=== PATIENT | male | born 1970 | race Caucasian/White ===

== ENCOUNTER 2016-11-03 20:15 | Emergency (ER) | payer BC | END 2016-11-03 21:08 | disposition left against medical advice (07) | LOC: ER 20:15 | DX: E16.2 Hypoglycemia, unspecified (principal) | CPT/HCPCS: 99282 ==

== ENCOUNTER 2018-03-16 19:42 | Observation (INO) ==
[2018-03-16] MEDS ORDERED: ONDANSETRON 4 MG/2 ML VIAL IVP ONE ×3 (19:50→23:57)
[2018-03-16] MEDS ORDERED: Sodium Chloride 0.9% 1,000 ML PRIMARY IV ONE ×3 (19:50→20:09)
[2018-03-16] MEDS ORDERED: ONDANSETRON 4 MG/2 ML VIAL ONE (20:05)
[2018-03-16 20:20] LABS: BASOPHILS # (AUTO) 0.07 10*3/UL; EOSINOPHILS # (AUTO) 0.08 10*3/UL; EOSINOPHILS % (AUTO) 1.2 % (0-8); Hematocrit [HCT] 40.6 % (42.0-52.0); Hemoglobin [HGB] 14.3 g/dL (14.0-18.0); LYMPHOCYTES # (AUTO) 1.12 10*3/uL; MEAN CORPUSCULAR HEMOGLOBIN 30.4 PG (27-31); MEAN CORPUSCULAR HGB CONC 35.2 g/dL (33-37); MEAN CORPUSCULAR VOLUME 86.2 FL (80-90); MEAN PLATELET VOLUME 11.7 FL (7.4-12.2); MONOCYTES # (AUTO) 0.25 10*3/UL (0.3-0.8); MONOCYTES % (AUTO) 3.6 % (5-15); NEUTROPHILS # (AUTO) 5.41 10*3/UL; NEUTROPHILS % (AUTO) 77.8 % (50-80); RED BLOOD COUNT 4.71 10^6/uL (4.70-6.10)
[2018-03-16 20:22] LABS: PLATELET MORPHOLOGY COMMENT NORMAL MORPHOLOGY (NORM); RBC MORPHOLOGY COMMENT NORMAL MORPHOLOGY (NORM); WBC MORPHOLOGY COMMENT NORMAL MORPHOLOGY (NORM)
[2018-03-16 20:25] LABS: BLOOD UREA NITROGEN 39 mg/dL (7-22); BUN/CREATININE RATIO 16.25 (6-20); SERUM ALBUMIN 4.3 g/dL (3.5-4.8)
[2018-03-16 20:33] LABS: SALICYLATE < 1.0 mg/dl (0-20)
[2018-03-16 20:37] LABS: VENOUS PCO2 37.2 mmHg (45-55); VENOUS PH 7.289 (7.32-7.42)
--- NOTE | 2018-03-16 21:10 | DI ---
EXAM: CT Head Without Intravenous Contrast CLINICAL HISTORY: ITS.REASON HEAD INJURY Physician Notes: Tech Comments: TECHNIQUE: Axial computed tomography images of the head/brain without intravenous contrast. COMPARISON: CT head dated 09/01/2017. FINDINGS: Brain: Unremarkable. No acute intracranial hemorrhage. No midline shift or herniation. Ventricles: Unremarkable. No ventriculomegaly. Bones/joints: No acute fracture. Soft tissues: Unremarkable. Vasculature: There is calcification of the distal internal carotid arteries and vertebrobasilar system. Sinuses: Unremarkable as visualized. Mastoid air cells: Unremarkable as visualized. IMPRESSION: No evidence of acute intracranial hemorrhage or skull fracture.
[2018-03-16 21:36] LABS: BILIRUBIN,URINE NEGATIVE (NEG); CLARITY,URINE CLEAR (CLEAR); COLOR,URINE YELLOW (Y); GLUCOSE, URINE (UA) 500 mg/dL (NEG); OCCULT BLOOD,URINE SMALL (NEG); PH,URINE 5.5 (5.0-8.5); PROTEIN,URINE >300 mg/dl (NEG); UROBILINOGEN,URINE 0.2 EU/dL (0.2)
[2018-03-16 21:38] LABS: URINE SAMPLE TYPE CLEAN CATCH URINE; URINE SPECIFIC GRAVITY - MAN 1.012
[2018-03-16 21:49] LABS: AMPHETAMINE SCREEN NEGATIVE (NEG); OPIATE SCREEN,URINE NEGATIVE (NEG)
[2018-03-16 21:50] LABS: CANNABINOID SCREEN,URINE NEGATIVE (NEG); COCAINE SCREEN NEGATIVE (NEG); METHADONE URINE SCREEN NEGATIVE (NEG); METHAMPHETAMINES SCREEN,URINE NEGATIVE (NEG)
[2018-03-16] MEDS ORDERED: INSULIN REGULAR, HUMAN 100 UNIT/1 ML - 3 ML SUBCUT ONE (22:00)
[2018-03-16] MEDS ORDERED: Insulin Regular Inj 100 UNIT in Sodium Chloride 0.9% 99 ML IV SCH (22:00)
--- NOTE | 2018-03-16 22:51 | CONSULT ---
Consult Note - Consult Consult Date: 03/16/18 Reason for Consult: Other Requesting Physician: Dr. Pradhan Primary Care Provider: Vianca Ribeiro MD - History of Present Illness History of Present Illness: This is a 48 years old male with medical history significant for history of type I diabetes, hypertension and was brought to the hospital by the receiving coordinator because of suicidal ideation, he did vomit at least twice in the ER. He was thinking of blowing his head off according to him. In the ER he was found to have hyperglycemia, hyponatremia in addition to chronic renal failure. There is also metabolic acidosis, he was given Zofran. In addition he was given IV fluid. He was assessed by [facility] and he was put on hold. He needed medical clearance before he would go to [facility]. Although [facility] puts in the notes that he was homicidal and mentioned to them that he would shoot his dad if he came close to him, when I talked to him about this he denied that. He said he was thinking of only harming himself only and he denied that he was thinking of harming anybody else. He was angry throughout the interview.He wanted to sleep. He said he is wearing his insulin pump but he supposed to change his site every 3 days and he didn't. He said he drinks when he is on his days off. He didn't want to talk about why he is suicidal. He said he is been suicidal for a long time but he didn't go into details. During the interview there was lots of profanity in his speech while talking to me. Past Medical History Medical History: 1. Diabetes mellitus type I. 2. Hypercholesterolemia. 3. Vitamin D deficiency. 4. Diabetic retinopathy, proliferative. 5. Diabetic nephropathy. 6. Chronic kidney disease, stage III. 7. Laceration of liver 1992. 8. Hypertension. 9. Tobacco abuse, uses smokeless tobacco. 10. [place] Surgical History: 1. Right shoulder surgery. Pertinent Family History: Significant for cancer in his father who had melanoma, and his grandfather who had prostate cancer. Tobacco Use: Current Every Day Smoker Do you dip or chew tobacco: Yes (CAN EVERY 3 DAYS) In the Past 12 Months, Have Used or Abuse Any of the Following Substance: None Review of Systems - Review of Systems All Systems: Reviewed & No Additional Complaints Except as Stated Medication / Allergies Home Medications: Home Medications Medication Instructions Recorded Confirmed Type blood glucose control, normal 1 ml MISCELLANEOUS 6XD #200 ea 02/13/17 03/16/18 History solution blood sugar diagnostic strips 1 strip MISCELLANEOUS 6XD #300 02/13/17 03/16/18 History strip cholecalciferol (vitamin D3) 2,000 1,000 unit PO DAILY #30 cap 02/13/17 03/16/18 History unit capsule insulin aspart U- 100 100 unit/mL 100 unit SUBCUT via pump #3 vial 02/13/17 03/16/18 Rx subcutaneous solution insulin syringe-needle U-100 1 mL 1 ml MISCELLANEOUS TID PRN #100 ea 02/13/17 03/16/18 History 30 gauge x 1/2" subcutaneous insulin pump 1 ea MISCELLANEOUS DAILY 02/13/17 03/16/18 History blood sugar diagnostic strips 1 strip MISCELLANEOUS 6-8X QD #600 02/16/17 03/16/18 Rx strip insulin glargine (U-100) 100 19 unit SUBCUT QHS PRN #1 unit 02/16/17 03/16/18 Rx unit/mL (3 mL) subcutaneous pen glucagon (human recombinant) 1 mg 1 mg SUBCUT ONCE #2 ea 02/21/17 03/16/18 Rx injection kit Urine Acetone Test,Strips [Ketone 0 spr .ROUTE .MEDSUPPLY 09/01/17 03/16/18 History Test Strip] atorvastatin 40 mg tablet 40 mg PO QHS #90 tab 09/27/17 03/16/18 Rx lisinopril 40 mg tablet 40 mg PO BID #180 tab 09/27/17 03/16/18 Rx Allergies/Adverse Reactions: Allergies Allergy/AdvReac Type Severity Reaction Status Date / Time No Known Allergies Allergy Verified 03/16/18 19:51 Exam - Vitals Vital Signs: Vital Signs Temperature 96.6 F Pulse Rate [Pulse Oximeter] 86 Pulse Rate 80 Respiratory Rate 16 Blood Pressure [Left Arm] 174/109 Pulse Ox 96 Oxygen Delivery Method Room Air Height 5 ft 5 in Weight 135 lb - General Additional General Exam Details: Angry. Somewhat cooperative though. - Head Head Exam: Normal Inspection - Eye Eye Exam: POSITIVE: Normal Appearance - ENT ENT Exam: POSITIVE: Normal Exam - Neck Neck Exam: Normal Inspection - Respiratory Respiratory Exam: POSITIVE: Clear to Auscultation - Bilaterally - Cardiovascular Cardiovascular Exam: POSITIVE: RRR - GI/Abdominal GI/Abdominal Exam: POSITIVE: Normal Bowel Sounds, Non Tender, Non Distended, Soft, No Organomegaly - Rectal Rectal Exam: POSITIVE: Deferred - External Exam: POSITIVE: Deferred - Extremities Extremities Exam: POSITIVE: Normal Inspection - Back Back Exam: POSITIVE: Normal Inspection - Neurological Neurological Exam: POSITIVE: Alert, Oriented x 3, CN II-XII Intact, No Facial Droop, Moves All Extremities Equally - Psychiatric Additional Psychiatric Exam Details: Angry. Results - Labs CBC and BMP: 03/16/18 20:00 03/16/18 20:00 Assessment and Plan - Patient Problems (1) Suicidal ideation Current Visit: Yes Status: Acute Comment: He needs medical clearance before he goes to [facility]. Did talk both the ER staff and our staff on the medical floor. The nursing staff on the medical floor don't feel safe if he is admitted here especially when we don't have security personnel. I think the decision was to keep him down in the ER rather than admitting him here. In terms of medical treatment the he is on IV fluids and antiemetics and insulin. Suggest to continue the same and continue watching his blood sugar. He need repeat labs in 6 hours. Code(s): R45.851 - Suicidal ideations
[2018-03-16] MEDS ORDERED: Sodium Chloride 0.9% 1,000 ML, Magnesium Sulfate 2gm (Premix) 50 ML with Multivitamin I... IV ONE ×5 (23:01)
[2018-03-16] MEDS ORDERED: PROMETHAZINE 25 MG/1 ML VIAL IM ONE (23:57)
[2018-03-17] MEDS ORDERED: Acetaminophen 1000mg Inj 1,000 MG/100 ML VIAL IV PRN (00:05)
[2018-03-17] MEDS ORDERED: LORazepam 2 MG/1 ML VIAL IVP ONE (00:05)
[2018-03-17] MEDS ORDERED: D5-NS 1,000 ML PRIMARY IV ONE (03:34)
[2018-03-17 04:53] LABS: BUN/CREATININE RATIO 14.09 (6-20)
[2018-03-17] MEDS ORDERED: ONDANSETRON 4 MG/2 ML VIAL ONE (06:20)
[2018-03-17] MEDS ORDERED: Metoclopramide Inj 10 MG/2 ML VIAL IVP ONE (06:31)
[2018-03-17] MEDS ORDERED: diphenhydrAMINE 50 MG/1 ML VIAL IVP ONE (06:33)
[2018-03-17] MEDS ORDERED: KETOROLAC 30 MG/1 ML VIAL IVP ONE (06:33)
[2018-03-17] MEDS ORDERED: Sodium Chloride 0.9% 1,000 ML PRIMARY IV ONE (06:35)
--- NOTE | 2018-03-17 07:39 | PDOC ---
General Adult HPI - General Chief Complaint: Suicidal Ideation / Attempt Stated Complaint: SUICIDAL IDEATION Date Seen by Provider: 03/16/18 Time Seen by Provider: 20:05 Source: POSITIVE: Patient, Police Exam Limitations: POSITIVE: No limitations Nurse's Notes Reviewed & Considered: Yes - History of Present Illness Initial Comment: The patient is a 48-year-old male who is brought to the emergency room by law enforcement officers. Some of the patient's family members called the police because the patient was threatening to shoot himself. On the arrival of law enforcement officers the patient reportedly had access to a firearm and was threatening to kill himself. He is also making homicidal threats against another family member. Patient has a history of diabetes mellitus and has an insulin pump. As the patient was being escorted by police for transport the patient slipped on the ice and struck his right forehead. He sustained an abrasion and hematoma to the right forehead. Patient states that he questions whether or not his insulin pump has been working normally lately. He's been drinking heavily last night. Patient states he has a history of migraine headaches and states that he feels like he has a migraine headache presently. Review of old records shows that the patient has a history of chronic renal failure; on 08/29/2017 BUN was 33 and creatinine 2.1 Have you received a tetanus shot in the past 10 years?: Unknown Body Location Affected: REPORTS: Head, Other (Suicidal and homicidal ideation; diabetes mellitus) Timing: REPORTS: Gradual Duration: <24 hours (Patient states he's had suicidal and homicidal ideations for over a day) Severity: Moderate Quality: REPORTS: "Pain" (Patient complains of some headache area of his recent right frontal head trauma) Context: REPORTS: Recent Trauma (As above) Modifying Factors: improves with: Nothing Similar Symptoms Previously: Yes (patient has a history of depression with some previous suicidal ideation) Recent Care Received: REPORTS: Denies Any Prior Injuries Related to Current Complaint?: No - Patient Home Medications Home Medications: Home Medications blood glucose control, normal solution 1 ml MISCELLANEOUS 6XD #200 ea 02/13/17 blood sugar diagnostic strips 1 strip MISCELLANEOUS 6XD #300 strip 02/13/17 cholecalciferol (vitamin D3) 2,000 unit capsule 1,000 unit PO DAILY #30 cap 02/13/17 insulin aspart U- 100 100 unit/mL subcutaneous solution 100 unit SUBCUT via pump #3 vial 02/13/17 insulin syringe-needle U-100 1 mL 30 gauge x 1/2" 1 ml MISCELLANEOUS TID PRN #100 ea 02/13/17 subcutaneous insulin pump 1 ea MISCELLANEOUS DAILY 02/13/17 blood sugar diagnostic strips 1 strip MISCELLANEOUS 6-8X QD #600 strip 02/16/17 insulin glargine (U-100) 100 unit/mL (3 mL) subcutaneous pen 19 unit SUBCUT QHS PRN #1 unit 02/16/17 glucagon (human recombinant) 1 mg injection kit 1 mg SUBCUT ONCE #2 ea 02/21/17 Urine Acetone Test,Strips [Ketone Test Strip] 0 spr .ROUTE .MEDSUPPLY 09/01/17 atorvastatin 40 mg tablet 40 mg PO QHS #90 tab 09/27/17 lisinopril 40 mg tablet 40 mg PO BID #180 tab 09/27/17 - Patient Allergies Allergies/Adverse Reactions: Allergies Allergy/AdvReac Type Severity Reaction Status Date / Time No Known Allergies Allergy Verified 03/16/18 19:51 Past Medical History - heen HEENT History: Denies History Additional HEENT History: Patient states he has five or six missing teeth. Cardiovascular History: Denies History Respiratory History: Denies History Gastrointestinal History: Denies History Genitourinary History: Denies History Endocrine History: Type 1 Diabetes Additional Endocrine History: INSULIN PUMP LEFT ABDOMEN, SENSOR ON RIGHT UPPER ARM Musculoskeletal History: Denies History Prosthesis or Implant: No Additional Musculoskeletal History: knee joint pain Neurological History: Denies History Blood Disorders: Denies History Psychiatric History: Denies History History of Sexually Transmitted Diseases: No Male Reproductive History: Denies History Cancer History: Denies History In Past Year Been Physically Harmed or Verbally Threatened: (PT WILL NOT ANSWER QUESTION) History of MDRO: No History of Other Communicable Diseases: No Tobacco Use: Current Every Day Smoker Alcohol Use: Occasionally Type of alcohol normally used: Beer In the Past 12 Months, Have Used or Abuse Any Substance: None Previous Surgical History: Yes Type / Date of Surgery: SHOULDER, HAND, BIOPSY FROM CHEST Anesthesia Reactions: No Malignant Hyperthermia: No Significant Family History: Cancer Additional Family History: Mother- breast/lung cancer Past Medical History Reviewed: Reviewed - No Changes ROS - Limitations ROS Limitations: Intoxication Constitution: REPORTS: Denies Symptoms Cardiovascular: REPORTS: Denies Cardiac Symptoms Respiratory: REPORTS: Denies Resp Symptoms Neurological: REPORTS: Headache Gastrointestinal: REPORTS: Nausea Endocrine: REPORTS: Denies Symptoms Musculoskeletal: REPORTS: Denies MS Symptoms Genitourinary: REPORTS: Denies Symptoms Eyes: REPORTS: Denies Symptoms ENT: REPORTS: Denies Symptoms Skin: REPORTS: Other (Contusion and abrasion right frontal area of the scalp) Lympathic: REPORTS: Denies Lympathic Symptoms Immunologic: POSITIVE: Denies Symptoms Psychiatric: POSITIVE: Suicidal Thoughts, Homicidal Thoughts General Adult Exam - General Appearance General Appearance: POSITIVE: Alert, Cooperative, No Acute Distress. NEGATIVE: No Evidence of Trauma (Right scalp hematoma) - HEENT HEENT: POSITIVE: Head Inspection Nml, Eyes Inspection Nml, Ears Inspection Nml, Nose Inspection Nml, Oral/Dental Inspect. Nml, Pharynx Inspect. Nml, PERRL, EOMI - Pupils Pupil Size: 3 mm: Bilateral (PERRLA) - Neck Neck: POSITIVE: Normal Inspection, Thyroid Normal - Respiratory Respiratory: POSITIVE: No Respiratory Distress, Breath Sounds Normal, Chest Non- Tender - Cardiovascular Cardiovascular: POSITIVE: Regular Rate & Rhythm, No Murmur, No Gallop, PMI Normal Peripheral Pulses: Radial (R): 2+, Radial (L): 2+ - Abdomen Abdomen: Soft: (All Quadrants), Normal Bowel Sounds: (All Quadrants), Denies Tenderness: (All Quadrants), No Splenomegaly: (All Quadrants), No Hepatomegaly: (All Quadrants), No Guarding: (All Quadrants), No Rebound: (All Quadrants), No Palpable Pulse: (All Quadrants), No Palpabale Mass: (All Quadrants), No Distenti on: (All Quadrants), No Rigidity: (All Quadrants) - Back Back: POSITIVE: Normal Inspection - Skin Skin: POSITIVE: Normal Color, Warm, Dry, No Rash - Extremities Extremity: Non-Tender: (All Extremities), Normal ROM: (All Extremities), Normal Inspection: (All Extremities) - Neurological / Psychological Neurological: POSITIVE: Affect Apporpriate, Oriented X3, motor electrician Normal As Tested, Motor Normal, Sensation Normal Images - Head Head: 1 - Scalp abrasion and hematoma General Adult Progress - Results Reviewed by me Xrays/CTs/US Reviewed by me: Yes Discussed with Radiologist: Yes Radiology Findings: CT scan of head without contrast read by radiologist as normal Lab Results Reviewed by Me: Yes Lab Results:: Laboratory Results 03/16/18 03/16/18 03/16/18 20:00 20:00 20:00 WBC 6.95 RBC 4.71 Hgb 14.3 Hct 40.6 L MCV 86.2 MCH 30.4 MCHC 35.2 RDW Std Deviation 36.4 L RDW Coeff of Chasity 11.7 Plt Count 219 MPV 11.7 Immature Gran % (Auto) 0.3 Neut % (Auto) 77.8 Lymph % (Auto) 16.1 [place] % (Auto) 3.6 L Eos % (Auto) 1.2 Baso % (Auto) 1.0 Immature Gran # (Auto) 0.02 Neut # (Auto) 5.41 Lymph # (Auto) 1.12 [place] # (Auto) 0.25 L Eos # (Auto) 0.08 Baso # (Auto) 0.07 WBC Morphology Comment Normal morphology Plt Morphology Comment Normal morphology RBC Morph Comment Normal morphology VBG pH VBG pCO2 VBG HCO3 VBG Base Excess Sodium 129 L Potassium 4.8 Chloride 91 L Carbon Dioxide 21 L Anion Gap 17 BUN 39 H Creatinine 2.4 H Estimated GFR 29 BUN/Creatinine Ratio 16.25 Glucose 609 H* Calculated Osmolality 304.0 H Calcium 8.7 Total Bilirubin 0.6 AST 39 ALT 36 Alkaline Phosphatase 126 Total Protein 6.8 Albumin 4.3 Globulin 2.4 L Albumin/Globulin Ratio 1.70 TSH 1.40 Ur Collection Type Urine Color Urine Clarity Urine pH Ur Specific [place] U Specif Grav (Refrac) Urine Protein Urine Glucose (UA) Urine Ketones Urine Occult Blood Urine Nitrate Urine Bilirubin Urine Urobilinogen Ur Leukocyte Esterase Urine RBC Urine WBC Ur Squamous Epith Cells Ur Renal Epithelial Cell Urine Crystals Urine Bacteria Urine Casts Urine Mucus Urine Trichomonas Urine Yeast Ur Culture Indicated? Salicylates < 1.0 Urine Opiates Screen Ur Buprenorphine Ur Oxycodone Screen Urine Methadone Screen Ur Propoxyphene Screen Acetaminophen < 10.0 Barbiturate Screen U Tricyclic Antidepress Phencyclidine Screen Amphetamines Screen U Methamphetamines Scrn Benzodiazepines Screen Cocaine Screen U Marijuana (THC) Screen Serum Alcohol 221 H Acetone Level 03/16/18 03/16/18 03/16/18 20:26 20:33 21:35 WBC RBC Hgb Hct MCV MCH MCHC RDW Std Deviation RDW Coeff of Chasity Plt Count MPV Immature Gran % (Auto) Neut % (Auto) Lymph % (Auto) [place] % (Auto) Eos % (Auto) Baso % (Auto) Immature Gran # (Auto) Neut # (Auto) Lymph # (Auto) [place] # (Auto) Eos # (Auto) Baso # (Auto) WBC Morphology Comment Plt Morphology Comment RBC Morph Comment VBG pH 7.289 L VBG pCO2 37.2 L VBG HCO3 17.9 L VBG Base Excess -9 L Sodium Potassium Chloride Carbon Dioxide Anion Gap BUN Creatinine Estimated GFR BUN/Creatinine Ratio Glucose Calculated Osmolality Calcium Total Bilirubin AST ALT Alkaline Phosphatase Total Protein Albumin Globulin Albumin/Globulin Ratio TSH Ur Collection Type Clean catch urine Urine Color Yellow Urine Clarity Clear Urine pH 5.5 Ur Specific [place] <=1.005 U Specif Grav (Refrac) 1.012 Urine Protein >300 A Urine Glucose (UA) 500 Urine Ketones Negative Urine Occult Blood Small H Urine Nitrate Negative Urine Bilirubin Negative Urine Urobilinogen 0.2 Ur Leukocyte Esterase Negative Urine RBC 1-3 Urine WBC None Ur Squamous Epith Cells None Ur Renal Epithelial Cell None Urine Crystals None Urine Bacteria None Urine Casts None Urine Mucus None Urine Trichomonas None Urine Yeast None Ur Culture Indicated? Culture not set Salicylates Urine Opiates Screen Negative Ur Buprenorphine Negative Ur Oxycodone Screen Negative Urine Methadone Screen Negative Ur Propoxyphene Screen Negative Acetaminophen Barbiturate Screen Negative U Tricyclic Antidepress Negative Phencyclidine Screen Negative Amphetamines Screen Negative U Methamphetamines Scrn Negative Benzodiazepines Screen Negative Cocaine Screen Negative U Marijuana (THC) Screen Negative Serum Alcohol Acetone Level Negative 03/17/18 03/17/18 04:38 04:38 WBC RBC Hgb Hct MCV MCH MCHC RDW Std Deviation RDW Coeff of Chasity Plt Count MPV Immature Gran % (Auto) Neut % (Auto) Lymph % (Auto) [place] % (Auto) Eos % (Auto) Baso % (Auto) Immature Gran # (Auto) Neut # (Auto) Lymph # (Auto) [place] # (Auto) Eos # (Auto) Baso # (Auto) WBC Morphology Comment Plt Morphology Comment RBC Morph Comment VBG pH VBG pCO2 VBG HCO3 VBG Base Excess Sodium 138 Potassium 4.8 Chloride 105 Carbon Dioxide 25 Anion Gap 8 BUN 31 H Creatinine 2.2 H Estimated GFR 32 BUN/Creatinine Ratio 14.09 Glucose 76 L Calculated Osmolality 291.0 Calcium 8.2 L Total Bilirubin AST ALT Alkaline Phosphatase Total Protein Albumin Globulin Albumin/Globulin Ratio TSH Ur Collection Type Urine Color Urine Clarity Urine pH Ur Specific [place] U Specif Grav (Refrac) Urine Protein Urine Glucose (UA) Urine Ketones Urine Occult Blood Urine Nitrate Urine Bilirubin Urine Urobilinogen Ur Leukocyte Esterase Urine RBC Urine WBC Ur Squamous Epith Cells Ur Renal Epithelial Cell Urine Crystals Urine Bacteria Urine Casts Urine Mucus Urine Trichomonas Urine Yeast Ur Culture Indicated? Salicylates Urine Opiates Screen Ur Buprenorphine Ur Oxycodone Screen Urine Methadone Screen Ur Propoxyphene Screen Acetaminophen Barbiturate Screen U Tricyclic Antidepress Phencyclidine Screen Amphetamines Screen U Methamphetamines Scrn Benzodiazepines Screen Cocaine Screen U Marijuana (THC) Screen Serum Alcohol 16 H Acetone Level CBC and BMP: 03/16/18 20:00 03/17/18 04:38 - Patient's Progress Pain Medication Addressed: POSITIVE: Yes (Patient given Toradol 30 mg IV, Reglan 10 mg IV and Benadryl 50 mg IV for migraine headache, with good effect. He adache essentially resolved on discharge) School/Work Release Addressed: POSITIVE: Yes (Patient medically cleared for mental health evaluation at the time of discharge) Re-Examine Time: 20:15 Re-Examine Comment: Blood glucose 609. Negative ketones. PH. Patient begun with hydration with normal saline, 1 L bolus. Patient was also given 10 units of regular insulin IV. Blood glucoses were monitored throughout his stay in the emergency room. Patient received a total of approximately 2.5 L of normal saline. At 0438 blood glucose was 76 and creatinine 2.2. At this point the patient was hydrated with D5W normal saline and the patient was fed a sandwich potato chips and peanut butter with crackers. At the time of discharge his blood glucose is around 150. Re-Examine Time:: 22:00 Re-Examine Comment: Attempted to admit patient to hospitalist. Hospitalist and nursing staff on [facility] refused to admit patient on the basis that "we have no security on the [place]". Therefore the patient was managed in the emergency room with IV hydration and insulin therapy as above. Patient also was treated for migraine headache. Counselor for [employer] evaluated patient in the emergency room and will return to make final psychiatric disposition when patient is medically stable. Re-examine Time: 07:30 Re-Examine Comment: Patient medically stable. Blood glucose 150. Patient alert and eating. He's avoided. Headache resolved. Blood alcohol now less than 100. Patient considered medically stable for reevaluation by mental health counselor from [facility]. Status: POSITIVE: Improved, Re-Examined Antibiotics Given: No - Consult Consult (If Yes, Name of Consulting MD & Time Called): Yes (Dr. Pradhan, hospit alist, ; [facility] counselor, ) Consulting MD will see pt:: POSITIVE: Other (Further disposition by mental health counselor) Counseled: POSITIVE: Patient, RE: Lab Results, RE: Radiology Results, RE: DX, RE: Need for F/U Patient Care Time - Estimated PCT Patient Care Time (In Minutes): 75 Vital Signs - Recent Vital Signs Vital Signs: Vital Signs (Last 8 hours) Temp Pulse Resp BP Pulse Ox 03/17/18 06:23 97.7 F 80 12 166/77 79 03/17/18 03:15 98.2 F 85 16 158/82 92 - VS Reviewed Vital Signs Reviewed: Yes Discharge Clinical Impression: Alcohol abuse, Feeling suicidal, Type 1 diabetes mellitus with multiple complications, Hyperglycemia, Suicidal ideation, Migraine headache, Scalp contusion, Homicidal ideation Discharge Disposition: Other (Further disposition per mental health counselor from [facility]) Condition: Good Follow Up With: DIANE VILLA [Primary Care Provider] - Care Transferred To: mental health counselor, [facility]
--- NOTE | 2018-03-17 11:15 | EKG ---
[address] [address] Measurements Intervals [place] Rate: 76 P: SD: 0 QRS: 31 QRSD: 85 T: 62 QT: 397 QTc: 427 Interpretive Statements SINUS RHYTHM Compared to ECG 05/14/2015 13:13:12 No significant changes Electronically Signed On 03-17-18 16:43:39 MST by Claudio Oakes [email or web address]
[2018-03-17 11:31] LABS: HEMOGLOBIN A1C 11.16 % (4.2-6.0)
[2018-03-17] MEDS ORDERED: Insulin Glargine SoloStar Inj 100 UNIT/ML INSULN.PEN SUBCUT ONE ×2 (13:51→16:11)
--- NOTE | 2018-03-17 13:52 | PDOC ---
HPI - History of Present Illness Date of Service: 03/17/18 Time of Service: 14:00 Chief Complaint: Suicidal ideation History of Present Illness: Please see my consult note from yesterday. This is a 48 years old male with medical history significant for history of type I diabetes, hypertension and was brought to the hospital by the frame nailer because of suicidal ideation, he did vomit at least twice in the ER. He was thinking of blowing his head off according to him. In the ER he was found to have hyperglycemia, hyponatremia in addition to chronic renal failure. There is also metabolic acidosis, he was given Zofran. In addition he was given IV fluid. He was assessed by [facility] and he was put on hold. He needed medical clearance before he would go to [facility]. Although [facility] puts in the notes that he was homicidal and mentioned to them that he would shoot his dad if he came close to him, when I talked to him about this he denied that. He said he was thinking of only harming himself only and he denied that he was thinking of harming anybody else. He was angry throughout the interview. He wanted to sleep. He said he is wearing his insulin pump but he supposed to change his site every 3 days and he didn't. He said he drinks when he is on his days off. He didn't want to talk about why he is suicidal. He said he is been suicidal for a long time but he didn't go into details. During the interview there was lots of profanity in his speech while talking to me. I talked to the nursing staff about admitting him here last night however they did not feel safe because of the note of the [email or web address] mentioning him being homicidal although he denied being homicidal to me. They spoke with their supervisor broadloom who agreed with their decision and patient was kept in the ER overnight. His labs improved this morning. Vomiting seems to be stopped. There is still some headache but it's not as bad he said its like 2 out of 10. [facility] did assess the patient again and based on the psychiatrist's recommendation they want him to be off his insulin pump before [facility] would accept him. I did speak with psychiatrist's in [facility] and he wants him to be off the insulin because of his suicidal ideation so that he does not administer a high dosage himself. I did inform the POWER DIGGER OPERATOR Dev Camacho about the nurses concern. Apparently after discussion between him and the nursing supervisor broadloom the decision that its okay to admit him here first and try to switch his insulin pump to subcutaneous insulin before he goes to [facility]. Past Medical History Medical History: 1. Diabetes mellitus type I. 2. Hypercholesterolemia. 3. Vitamin D deficiency. 4. Diabetic retinopathy, proliferative. 5. Diabetic nephropathy. 6. Chronic kidney disease, stage III. 7. Laceration of liver 1992. 8. Hypertension. 9. Tobacco abuse, uses smokeless tobacco. 10. [place] Surgical History: 1. Right shoulder surgery. Pertinent Family History: Significant for cancer in his father who had melanoma, and his grandfather who had prostate cancer. Tobacco Use: Current Every Day Smoker Do you dip or chew tobacco: Yes (CAN EVERY 3 DAYS) In the Past 12 Months, Have Used or Abuse Any of the Following Substance: None Alcohol Use: Other (He said he drinks on his days off. Convinced this 50 how much.) Medication / Allergies Home Medications: Home Medications Medication Instructions Recorded Confirmed Type blood glucose control, normal 1 ml MISCELLANEOUS 6XD #200 ea 02/13/17 03/16/18 History solution blood sugar diagnostic strips 1 strip MISCELLANEOUS 6XD #300 02/13/17 03/16/18 History strip cholecalciferol (vitamin D3) 2,000 1,000 unit PO DAILY #30 cap 02/13/17 03/16/18 History unit capsule insulin aspart U- 100 100 unit/mL 100 unit SUBCUT via pump #3 vial 02/13/17 03/16/18 Rx subcutaneous solution insulin syringe-needle U-100 1 mL 1 ml MISCELLANEOUS TID PRN #100 ea 02/13/17 03/16/18 History 30 gauge x 1/2" subcutaneous insulin pump 1 ea MISCELLANEOUS DAILY 02/13/17 03/16/18 History blood sugar diagnostic strips 1 strip MISCELLANEOUS 6-8X QD #600 02/16/17 03/16/18 Rx strip insulin glargine (U-100) 100 19 unit SUBCUT QHS PRN #1 unit 02/16/17 03/16/18 Rx unit/mL (3 mL) subcutaneous pen glucagon (human recombinant) 1 mg 1 mg SUBCUT ONCE #2 ea 02/21/17 03/16/18 Rx injection kit Urine Acetone Test,Strips [Ketone 0 spr .ROUTE .MEDSUPPLY 09/01/17 03/16/18 History Test Strip] atorvastatin 40 mg tablet 40 mg PO QHS #90 tab 09/27/17 03/16/18 Rx lisinopril 40 mg tablet 40 mg PO BID #180 tab 09/27/17 03/16/18 Rx Allergies/Adverse Reactions: Allergies Allergy/AdvReac Type Severity Reaction Status Date / Time No Known Allergies Allergy Verified 03/16/18 19:51 Review of Systems - Review of Systems All Systems: Reviewed & No Additional Complaints Except as Stated Exam - Vitals Vital Signs: Vital Signs Temperature 98.8 F Temperature Source Temporal Artery Scan Pulse Rate [Pulse Oximeter] 81 Pulse Rate 80 Respiratory Rate 16 Blood Pressure [Left Arm] 148/76 Pulse Ox 95 Oxygen Delivery Method Room Air Height 5 ft 5 in Weight 135 lb - General Additional General Exam Details: Was laying in bed doesn't appear in distress. - Head Head Exam: Normal Inspection - Eye Eye Exam: POSITIVE: Normal Appearance - ENT ENT Exam: POSITIVE: Normal Exam - Neck Neck Exam: Normal Inspection - Respiratory Respiratory Exam: POSITIVE: Clear to Auscultation - Bilaterally - Cardiovascular Cardiovascular Exam: POSITIVE: RRR - GI/Abdominal GI/Abdominal Exam: POSITIVE: Normal Bowel Sounds, Non Tender, Non Distended, Soft, No Organomegaly - Rectal Rectal Exam: POSITIVE: Deferred - External Exam: POSITIVE: Deferred - Extremities Extremities Exam: POSITIVE: No Edema Present - Back Back Exam: POSITIVE: Normal Inspection - Neurological Neurological Exam: POSITIVE: Alert, Oriented x 3, CN II-XII Intact, Speech Intact / Clear - Psychiatric Psychiatric Exam: POSITIVE: Flat Affect Results - Labs CBC and BMP: 03/16/18 20:00 03/17/18 04:38 Assessment and Plan - Patient Problems (1) Suicidal ideation Current Visit: Yes Status: Acute Comment: I think will put him one-to-one nursing. He'll be transferred to [facility] once his blood sugars are controlled on a subcutaneous regimen different from his previous insulin pump regimen. Code(s): R45.851 - Suicidal ideations (2) Diabetes Current Visit: Yes Status: Acute Comment: His basal level is a 21.5 so will switch that to 21 of Lantus. Will put him on sliding scale. We'll continue with the fluids for now. Code(s): E11.9 - Type 2 diabetes mellitus without complications (3) Hypertension Current Visit: Yes Status: Acute Comment: Resume his previous medications Code(s): I10 - Essential (primary) hypertension (4) Hypercholesterolemia Current Visit: Yes Status: Acute Comment: Continue Lipitor Code(s): E78.00 - Pure hypercholesterolemia, unspecified (5) Alcohol abuse Current Visit: Yes Status: Acute Comment: We will put him on the CIWA protocol in case he develop any withdrawal. Code(s): F10.10 - Alcohol abuse, uncomplicated
[2018-03-17] MEDS ORDERED: LIDOCAINE W/ SODIUM BICARB 0.5 ML SYR SUBD PRN (14:00)
[2018-03-17] MEDS ORDERED: ACETAMINOPHEN 325 MG TABLET PO PRN (14:00)
[2018-03-17] MEDS ORDERED: ONDANSETRON 4 MG/2 ML VIAL IVP PRN (14:00)
[2018-03-17] MEDS ORDERED: CALCIUM CARBONATE 500 MG (TUMS) CHEWABLE TABLET PO PRN (14:00)
[2018-03-17] MEDS ORDERED: DOCUSATE 100 MG CAPSULE PO PRN (14:00)
[2018-03-17] MEDS ORDERED: LORazepam 1 mg tab (ETOH withdrawal) PO PRN (14:12)
[2018-03-17] MEDS ORDERED: LORazepam Inj(ETOH withdrawal) 2 MG/ML VIAL IVP PRN (14:12)
[2018-03-17] MEDS: Sodium Chloride 0.9% 1,000 ML PRIMARY IV SCH (14:21)
[2018-03-17] MEDS: Insulin Lispro Flexpen 300 UNIT/3 ML INSULN.PEN SUBCUT SCH ×3 (14:27→20:02)
[2018-03-17] MEDS: LISINOPRIL 20 MG TABLET PO SCH (20:02)
[2018-03-17] MEDS ORDERED: ATORVASTATIN 40 MG TABLET PO SCH (21:00)
[2018-03-17] MEDS ORDERED: Insulin Lispro Flexpen 300 UNIT/3 ML INSULN.PEN SUBCUT ONE (22:03)
[2018-03-18] MEDS: Sodium Chloride 0.9% 1,000 ML PRIMARY IV SCH (00:44)
[2018-03-18 05:29] LABS: BUN/CREATININE RATIO 17.27 (6-20)
[2018-03-18] MEDS: Insulin Lispro Flexpen 300 UNIT/3 ML INSULN.PEN SUBCUT SCH ×2 (06:39→11:07)
[2018-03-18] MEDS ORDERED: Insulin Glargine SoloStar Inj 100 UNIT/ML INSULN.PEN SUBCUT SCH ×2 (09:00→13:00)
[2018-03-18] MEDS: LISINOPRIL 20 MG TABLET PO SCH (11:00)
[2018-03-18] MEDS ORDERED: Insulin Lispro Flexpen 300 UNIT/3 ML INSULN.PEN SUBCUT ONE (12:08)
[2018-03-18] MEDS ORDERED: AmLODIPine Tab 5 MG TABLET PO ONE (12:09)
--- NOTE | 2018-03-18 13:39 | DCSUMMARY ---
Hospitalization Summary Admit Date: 03/17/2018 Discharge Date: 03/18/18 Hospital Course: Transfer diagnoses 1. Suicidal ideation 2. History of diabetes type I 3. History of hypertension 4. History of hypercholesterolemia 5. History of chronic renal failure stage III 6. History of diabetic nephropathy and retinopathy 7. Alcohol intoxication resolved Hospital course This is a 48 years old male with medical history significant for history of type I diabetes, hypertension and hypercholesterolemia who was brought to the hospital by the teacher selection specialist because of suicidal ideation, he did vomit at least twice in the ER. He was thinking of blowing his head off according to him. In the ER he was found to have hyperglycemia, hyponatremia in addition to chronic renal failure. There was also metabolic acidosis he was giving Zofran and insulin. In addition he was givin IV fluid. He was assessed by [facility] and he was put on hold. He needed medical clearance before he would go to [facility]. After getting IV fluid and insulin in the ER his sodium and glucose improved. However he is on insulin pump and per the discussion that I had with the psychiatrist their policy that the patient need to be switched to subcutaneous insulin injections from the pump because of his suicidal ideation. So the patient was admitted to the hospital we switched him from the pump to the subcutaneous injection. His blood sugar numbers were acceptable there was a low blood sugar that needed some oral carbohydrate. He is on 21 units of Lantus a day. And he was put on a sliding scale insulin. Blood pressure was elevated today we gave Norvasc in addition to his lisinopril. Patient was assessed by [facility] and he was accepted by [facility] today and he'll be transferred to their care today. When I talked to him today he denied suicidal ideation. He denied homicidal ideation also. He denied homicidal ideation to me when he came in also to the ER. Laboratory Results 03/18/18 05:05 Sodium 141 Potassium 4.4 Chloride 109 Carbon Dioxide 28 Anion Gap 4 L BUN 38 H Creatinine 2.2 H Estimated GFR 32 BUN/Creatinine Ratio 17.27 Glucose 58 L Calculated Osmolality 298.0 H Calcium 8.4 L Discharge instruction Diet regular Activity as started Medications Active Medications Acetaminophen (Tylenol) 650 mg PO Q6H PRN PRN Reason: Pain or Fever Last Admin: 03/18/18 08:38 Dose: 650 mg Documented by: Atorvastatin Calcium (Lipitor) 40 mg PO BEDTIME JUNE Last Admin: 03/17/18 20:03 Dose: 40 mg Documented by: Calcium Carbonate (Tums) 1 - 2 tab PO Q6H PRN PRN Reason: Heartburn Docusate Sodium (Colace) 100 mg PO BID PRN PRN Reason: Constipation Sodium Chloride (Normal Saline 0.9%) 25 mls @ 200 mls/hr IV .Post Infusion PRN PRN Reason: No Primary IV for Flush ONLY Insulin Glargine (Lantus Solostar Inj) 21 unit SUBCUT DAILY@1300 [facility] Last Admin: 03/18/18 13:23 Dose: 21 unit Documented by: Insulin Human Lispro (Humalog Flexpen Inj) 0 - 14 unit SUBCUT AC HS [facility]; Protocol Last Admin: 03/18/18 11:07 Dose: 4 unit Documented by: Lidocaine HCl (Lidocaine Buffered Inj) 0.5 ml SUBD ONCE PRN PRN Reason: IV Starts Lisinopril (Prinivil) 40 mg PO BID [facility] Last Admin: 03/18/18 11:00 Dose: 40 mg Documented by: Lorazepam (Ativan Inj (Etoh Withdrawal)) 1 - 4 mg IVP .PER CIWA-AR PRN PRN Reason: CIWA-Ar score >8 Lorazepam (Ativan Tab(Etoh Withdrawal)) 1 - 4 mg PO .PER CIWA-AR PRN PRN Reason: CIWA-Ar >8 Ondansetron HCl (Zofran Inj) 4 mg IVP Q4H PRN PRN Reason: NAUSEA / VOMITING Follow-up per [facility] post discharge Condition at transfer was stable for transfer Exam - Vitals Vital Signs: Vital Signs Temperature 97.2 F Temperature Source Temporal Artery Scan Pulse Rate [Pulse Oximeter] 85 Pulse Rate 85 Respiratory Rate 20 Blood Pressure [Right Arm] 202/100 Blood Pressure [Left Arm] 162/71 Blood Pressure 202/100 Pulse Ox 96 Oxygen Delivery Method Room Air Height 5 ft 6 in Weight 131 lb - General General Appearance: No Acute Distress - Head Additional Head Exam Details: A bruise noted on the right forehead - Eye Eye Exam: POSITIVE: Normal Appearance - ENT ENT Exam: POSITIVE: Normal Exam - Neck Neck Exam: Normal Inspection - Respiratory Respiratory Exam: POSITIVE: Clear to Auscultation - Bilaterally - Cardiovascular Cardiovascular Exam: POSITIVE: RRR - GI/Abdominal GI/Abdominal Exam: POSITIVE: Normal Bowel Sounds, Non Tender, Non Distended, Soft, No Organomegaly - Rectal Rectal Exam: POSITIVE: Deferred - External Exam: POSITIVE: Deferred - Extremities Extremities Exam: POSITIVE: Normal Inspection - Back Back Exam: POSITIVE: Normal Inspection - Neurological Neurological Exam: POSITIVE: Alert, Oriented x 3, CN II-XII Intact, No Facial Droop, Speech Intact / Clear, Moves All Extremities Equally - Psychiatric Psychiatric Exam: POSITIVE: Normal Affect Patient Problems - Patient Problem List (1) Suicidal ideation Status: Acute Code(s): R45.851 - Suicidal ideations Category: Medical (2) Hypertension Status: Acute Code(s): I10 - Essential (primary) hypertension Category: Medical (3) Hypercholesterolemia Status: Acute Code(s): E78.00 - Pure hypercholesterolemia, unspecified Category: Medical (4) Alcohol abuse Status: Acute Code(s): F10.10 - Alcohol abuse, uncomplicated Category: Medical
== END 2018-03-18 14:41 ==
LOC: MED/SURG 19:42 → ER 19:42 → MED/SURG 03-17 13:27
PROVIDERS: ADMIT Internal Medicine; ATTEND Internal Medicine

== ENCOUNTER 2019-01-28 14:55 | Inpatient (IN) ==
[2019-01-28] MEDS ORDERED: ONDANSETRON 4 MG/2 ML VIAL IVP ONE (15:07)
[2019-01-28] MEDS ORDERED: Sodium Chloride 0.9% 1,000 ML PRIMARY IV ONE ×2 (15:07→16:42)
[2019-01-28 15:19] LABS: BASOPHILS % (AUTO) 0.7 % (0-1); EOSINOPHILS # (AUTO) 0 10*3/UL; EOSINOPHILS % (AUTO) 1.4 % (0-8); Hematocrit [HCT] 39.9 % (42.0-52.0); Hemoglobin [HGB] 13.8 g/dL (14.0-18.0); MEAN CORPUSCULAR HGB CONC 34.6 g/dL (33-37); MEAN CORPUSCULAR VOLUME 86.9 FL (80-90); MEAN PLATELET VOLUME 10.8 FL (7.4-12.2); MONOCYTES # (AUTO) 0.38 10*3/UL (0.3-0.8); MONOCYTES % (AUTO) 5.5 % (5-15); NEUTROPHILS # (AUTO) 5.58 10*3/UL; NEUTROPHILS % (AUTO) 80.7 % (50-80); RED BLOOD COUNT 4.59 10^6/uL (4.70-6.10)
[2019-01-28 15:20] LABS: BASOPHILS # (AUTO) 0.05 10*3/UL; PLATELET MORPHOLOGY COMMENT NORMAL MORPHOLOGY (NORM); RBC MORPHOLOGY COMMENT NORMAL MORPHOLOGY (NORM); WBC MORPHOLOGY COMMENT NORMAL MORPHOLOGY (NORM)
[2019-01-28 15:26] LABS: BUN/CREATININE RATIO 11.86 (6-20); SERUM ALBUMIN 3.9 g/dL (3.5-4.8)
[2019-01-28 15:44] LABS: VENOUS PH 7.36 (7.32-7.42)
[2019-01-28 16:58] LABS: BILIRUBIN,URINE NEGATIVE (NEG); CLARITY,URINE CLEAR (CLEAR); COLOR,URINE YELLOW (Y); GLUCOSE, URINE (UA) 250 mg/dL (NEG); OCCULT BLOOD,URINE Trace-lysed (NEG); PH,URINE 5.5 (5.0-8.5); PROTEIN,URINE >300 mg/dl (NEG); UROBILINOGEN,URINE 0.2 EU/dL (0.2)
[2019-01-28 17:06] LABS: URINE SAMPLE TYPE CLEAN CATCH URINE
[2019-01-28] MEDS ORDERED: ACETAMINOPHEN 325 MG TABLET PO PRN (19:21)
[2019-01-28] MEDS ORDERED: LIDOCAINE W/ SODIUM BICARB 0.5 ML SYR SUBD PRN (19:21)
[2019-01-28] MEDS ORDERED: DOCUSATE 100 MG CAPSULE PO PRN (19:21)
[2019-01-28] MEDS ORDERED: ONDANSETRON 4 MG/2 ML VIAL IVP PRN (19:21)
[2019-01-28] MEDS ORDERED: CALCIUM CARBONATE 500 MG (TUMS) CHEWABLE TABLET PO PRN (19:21)
[2019-01-28] MEDS: Sodium Chloride 0.9% 1,000 ML PRIMARY IV SCH (19:25)
[2019-01-28] MEDS ORDERED: Insulin Sliding Scale Protocol SUBCUT PRN (19:46)
[2019-01-28] MEDS ORDERED: Glucagon Inj Vial 1 MG/ML VIAL IM PRN (19:46)
[2019-01-28] MEDS ORDERED: DEXTROSE 31 GM GEL PO PRN (19:46)
[2019-01-28] MEDS ORDERED: DEXTROSE 50%-WATER SYRINGE 50 ML SYRINGE IVP PRN (19:46)
[2019-01-28] MEDS ORDERED: HYDRALAZINE 20 MG/1 ML IVP PRN (19:56)
[2019-01-28] MEDS ORDERED: ATORVASTATIN 40 MG TABLET PO SCH (21:00)
[2019-01-28] MEDS ORDERED: INSULIN ASPART 5 UNIT SUBCUT SCH (21:00)
[2019-01-28] MEDS: CARVEDILOL 3.125 MG TABLET PO SCH (21:06)
[2019-01-29 02:15] VITALS: RESP 16
[2019-01-29] MEDS: Sodium Chloride 0.9% 1,000 ML PRIMARY IV SCH (06:01)
[2019-01-29 06:38] VITALS: BP 166/99; TEMP 97.2; O2SAT 97
[2019-01-29] MEDS ORDERED: Insulin Glargine SoloStar Inj 100 UNIT/ML INSULN.PEN SUBCUT SCH (07:00)
[2019-01-29] MEDS ORDERED: Insulin Lispro Flexpen 300 UNIT/3 ML INSULN.PEN SUBCUT SCH (07:00)
[2019-01-29] MEDS: CARVEDILOL 3.125 MG TABLET PO SCH (08:17)
[2019-01-29] MEDS ORDERED: SUBCUTANEOUS INSULIN PUMP miscellaneous SCH (09:00)
[2019-01-29] MEDS ORDERED: AmLODIPine Tab 5 MG TABLET PO SCH (09:00)
[2019-01-30 12:20] LABS: HEPATITIS B SURFACE AG Negative (Negative)
== END 2019-01-29 11:32 | disposition home or self-care (01) | DRG 700 ==
LOC: ER 14:55 → MED/SURG 18:31
PROVIDERS: ADMIT Family Medicine; ATTEND Family Medicine